=== PATIENT | female | born 1965 | race Caucasian/White ===

== ENCOUNTER → 2018-11-27 | Day surgery (SDC) | payer OTHER ==
--- NOTE | 2018-12-01 18:26 | PATH ---
Surgical Pathology Report Patient Name: DARRICK MALONE [facility]. Rec. #: [id number] /Age/Gender: 1965 (Age: 53) / F Account: [id number] Location: [facility] Taken: 11/27/2018 Received: 11/27/2018 Reported: 12/01/2018 Physicians: Oh Hoover M.D. Specimen(s) Received RIGHT BREAST SPECIMEN WITHOUT CALCIFICATIONS Clinical History Nonpalpable lesion Mammographic findings: Suspicious Final Diagnosis RIGHT BREAST SPECIMEN WITHOUT CALCIFICATIONS, STEREOTACTIC BIOPSY: BREAST TISSUE WITH LOBULAR CARCINOMA IN SITU (LCIS), CLASSICAL TYPE. THE REST OF THE BREAST TISSUE SHOW FIBROCYSTIC CHANGES WITH USUAL DUCTAL HYPERPLASIA, COLUMNAR CELL CHANGE, DILATED DUCTS, MICROCYST, APOCRINE METAPLASIA, AND STROMAL FIBROSIS. Comment: Immunohistochemical stains show the following results: tumor cells in the LCIS (block A1) are negative for E-Cadherin, supports a lobular phenotype. Intraductal epithelial proliferation (block 5, block 6) show mosaic positive staining pattern for CK5/6, and patchy staining pattern for ER, consistent with usual ductal hyperplasia. E-cadherin, CK5/6 performed at [facility] ([id number]) and interpreted at [facility]. ER performed and interpreted at [facility]. Positive and negative controls (internal if applicable) show appropriate results. Electronically Signed Liz Fritz M.D. Gross Description Received in formalin labeled "right breast without calcifications," is a 5.5 x 4.5 x 0.4 cm aggregate of abundant vigil-yellow, irregular to cylindrical portions of fibroadipose tissue. The formalin is filtered and the specimen is entirely submitted in 6 cassettes. Time to formalin fixation: 5 minutes Total formalin fixation time: Approximately 6 hours. /11/27/2018 saudi11/27/2018
== END | disposition home or self-care (01) ==
LOC: FMAMMOTONE 10:13
PROVIDERS: ATTEND Family Medicine
PROC: 0HBT3ZX Excision of Right Breast, Percutaneous Approach, Diagnostic (ICD-10-PCS; principal; 2018-11-27)
DX: D05.01 Lobular carcinoma in situ of right breast (principal); N60.31 Fibrosclerosis of right breast; N60.81 Other benign mammary dysplasias of right breast; N64.89 Other specified disorders of breast; R92.1 Mammographic calcification found on diagnostic imaging of breast
CPT/HCPCS: 19081; 87899; 88305-TC; 88342-TC; A4648

== ENCOUNTER 2019-07-03 10:49 | Day surgery (SDC) | payer OTHER ==
--- NOTE | 2019-06-25 13:25 | HP ---
Admitting History and Physical - Primary Care Physician PCP: Carmen Mast - Admission Chief Complaint: right breast LCIS History of Present Illness: Patient is a 54 yo female who was noted to have right breast calcifications on screening mammo 10/2018. Patient underwent a stereo core bx (11/2018) of this area which revealed LCIS classical type. MRI done 01/2019 was unremarkable. Patient is now presenting for right breast WE with NL. History Source: Patient Limitations to Obtaining History: No Limitations - Past Medical History Pulmonary: Yes: Asthma Heme/Onc: Yes: Anemia Psych: Yes: Bipolar (last hospitalization 7 yrs ago) Endocrine: Yes: Hypothyroidism - Past Surgical History Past Surgical History: Yes: Cholecystectomy (lap 2015) - Smoking History Smoking history: Former smoker Have you smoked in the past 12 months: No - Alcohol/Substance Use Hx Alcohol Use: No Home Medications - Allergies Allergies/Adverse Reactions: Allergies Allergy/AdvReac Type Severity Reaction Status Date / Time Sulfa (Sulfonamide Allergy Verified 02/09/15 14:27 Antibiotics) - Home Medications Home Medications: Ambulatory Orders Naproxen [Naprosyn -] 500 mg PO BID #14 tablet 02/09/15 Family Disease History - Family Disease History Family Disease History: CA: Father (prostate ca 80 currently 84), Sister ( breast ca 67 stage 4) Other Family History: paternal cousin-breast cancer at 49 Physical Examination Constitutional: Yes: Well Nourished Breast(s): Yes: Other (Breasts are symmetrical and diffusely nodular without suspicious masses or adenopathy noted bilaterally.) Problem List - Problems (1) Lobular carcinoma in situ (LCIS) of right breast Code(s): D05.01 - LOBULAR CARCINOMA IN SITU OF RIGHT BREAST Assessment/Plan Plan: Right breast WE with NL.
[2019-06-29 12:59] VITALS: BMI 46.3
[2019-07-03] MEDS ORDERED: PROPOFOL 20 ML ONE ×2 (13:40→13:42)
[2019-07-03] MEDS ORDERED: MIDAZOLAM HCL 2 MG/2 ML SINGLE DOSE VIAL ONE (13:40)
[2019-07-03] MEDS ORDERED: DEXAMETHASONE SOD PHOSPHATE 4 MG/1 ML VIAL ONE (13:42)
[2019-07-03] MEDS ORDERED: KETOROLAC TROMETHAMINE 30 MG/1 ML VIAL ONE (13:42)
[2019-07-03] MEDS ORDERED: LIDOCAINE HCL/PF 2% SDV 5ML VIAL ONE (13:42)
[2019-07-03] MEDS ORDERED: ONDANSETRON 4 MG/2 ML VIAL ONE (13:42)
[2019-07-03] MEDS ORDERED: BUPIVACAINE HCL/PF 2.5 MG/ML - 30 ML VIAL IJ ONE (13:44)
[2019-07-03] MEDS ORDERED: LIDOCAINE HCL 1% PRESERVATIVE FREE - 30ML VIAL ONE (13:44)
[2019-07-03] MEDS ORDERED: LIDOCAINE HCL 1%, 10 MG/ML (50 mL VIAL) NR ONE (14:58)
[2019-07-03] MEDS ORDERED: BUPIVACAINE HCL/PF 0.25% (2.5MG/ML) 10 ML VIAL IJ ONE (14:58)
[2019-07-03] MEDS ORDERED: ONDANSETRON 4 MG/2 ML VIAL IVPUSH PRN (15:28)
[2019-07-03] MEDS ORDERED: KETOROLAC TROMETHAMINE 30 MG/1 ML VIAL IVPUSH PRN (15:28)
[2019-07-03] MEDS ORDERED: DEXTROSE 5%-0.45% SALINE 1,000 ML IV SCH (15:30)
[2019-07-03] MEDS ORDERED: oxyCODONE HCL 5 MG TABLET PO PRN (15:59)
[2019-07-03] MEDS ORDERED: LACTATED RINGERS SOLUTION 1,000 ML IV SCH (16:00)
[2019-07-03 16:12] VITALS: TEMP 97.6
[2019-07-03 16:42] VITALS: BP 112/68
[2019-07-03 17:07] VITALS: PULSE 70
--- NOTE | 2019-07-06 11:43 | OP ---
DATE OF OPERATION: DATE OF DICTATION: 07/06/2019 PREOPERATIVE DIAGNOSIS: Right breast lobular carcinoma in situ. PROCEDURE: Right mammographically localized partial mastectomy. ANESTHESIA: General intubated. ATTENDING SURGEON: Carmen Brown MD ESTIMATED BLOOD LOSS: Minimal. COMPLICATIONS: None. DESCRIPTION OF PROCEDURE: Patient was made aware of the risks and benefits of the procedure and consented. Preoperatively, she went to radiology suite where a needle was placed next to the indexed lesion. The patient was then brought to the operating room and placed in a supine position on the operating room table. After general anesthesia was induced, the patient was intubated. The operative site was prepped and draped in the usual sterile fashion. Curvilinear incision was then made next to the needle. Using electrocautery, thick skin flaps were made. Needle was withdrawn through the puncture site and a wire through the wound. Tissues around the wire were then sharply excised and submitted with a short suture superior, long suture lateral. Specimen radiograph confirmed the presence of the indexed lesion. This was then submitted for permanent sectioning. The wound was then copiously irrigated with normal saline and hemostasis maintained by electrocautery. The wound was closed with deep 2-0 Vicryl followed by subdermal 3-0 Vicryl followed by a running subcuticular 4-0 Monocryl. Dermabond, sterile dressing, and a compression bra were then applied, and the patient, having tolerated the procedure well, was transferred to the recovery room in excellent condition. CARMEN CORREA M.D. [id number]
--- NOTE | 2019-07-09 11:27 | PATH ---
Surgical Pathology Report Patient Name: DARRICK MALONE [facility]. Rec. #: [id number] /Age/Gender: 1965 (Age: 54) / F Account: [id number] Location: [facility] Taken: 07/03/2019 Received: 07/03/2019 Reported: 07/09/2019 Physicians: Carmen Mast M.D. Specimen(s) Received RIGT BREAST WIDE EXCISION Clinical History History of LCIS Final Diagnosis RIGHT BREAST, EXCISION: BREAST TISSUE WITH ATYPICAL LOBULAR HYPERPLASIA (ALH). REMAINING BREAST TISSUE SHOW PROLIFERATIVE FIBROCYSTIC CHANGES INCLUDING USUAL DUCTAL HYPERPLASIA (UDH), SCLEROSING ADENOSIS, COLUMNAR CELL CHANGE, APOCRINE METAPLASIA, STROMAL FIBROSIS, AND ASSOCIATED MICROCALCIFICATIONS. Comment: Immunohistochemical stain (block 6) E-cadherin performed and interpreted at [facility] confirms loss of membranous expression in the areas of atypical lobular hyperplasia. Electronically Signed Liz Fritz M.D. Gross Description Received in formalin, labeled "right breast wide excision, suture marked long lateral short superior" is a 3.5 x 3.5 x 0.8 cm. vigil-yellow, irregular, portion of fibroadipose tissue, weighing 9 grams. There is a short suture marking the superior aspect and a long suture marking the lateral aspect, per the surgeon. There is no skin or nipple present. The specimen is inked as follows: superior: red; lateral: blue; inferior: orange; medial: green; anterior: yellow; deep black. The specimen is serially sectioned from anterior to posterior. Sectioning reveals a hemorrhagic area in the fibroadipose tissue. No distinct mass present. Sections are entirely submitted in 9 cassettes as follows: 1- anterior margin; 2-8: The rest of the tissue 9-posterior margin. Time to formalin fixation: 20 minutes Time tissue placed in formalin: Approximately 76 hours RODRI/07/06/2019 jaquan07/06/2019
== END 2019-07-03 17:00 | disposition home or self-care (01) ==
LOC: FASU 10:49
PROVIDERS: ATTEND Surgery Surgical Oncology
PROC: 0HBT0ZZ Excision of Right Breast, Open Approach (ICD-10-PCS; principal; 2019-07-03 14:43)
DX: D05.01 Lobular carcinoma in situ of right breast (principal); D64.9 Anemia, unspecified; E03.9 Hypothyroidism, unspecified; J45.909 Unspecified asthma, uncomplicated; Z87.891 Personal history of nicotine dependence
CPT/HCPCS: 19281; 36415; 84460; 86803; 87340; 87389; 88307-TC; 88342-TC; 94760

== ENCOUNTER 2023-03-14 22:42 | Emergency (ER) | payer OTHER ==
[2023-03-14 23:03] VITALS: BP 123/61; PULSE 68; BMI 44.8
[2023-03-14] MEDS ORDERED: methylPREDNISolone NA SUCC 125 MG/2 ML VIAL IVPUSH ONE (23:14)
[2023-03-14] MEDS ORDERED: ACETAMINOPHEN 1000 MG/100 ML BAG IVPB ONE (23:17)
[2023-03-14] MEDS: ALBUTEROL SO4 2.5/IPRATROPIUM 0.5 INH SOL 3 ML VIAL.NEB. NEB SCH ×2 (23:31→23:45)
[2023-03-14] MEDS ORDERED: ALBUTEROL SO4 2.5/IPRATROPIUM 0.5 INH SOL 3 ML VIAL.NEB. NEB ONE (23:35)
[2023-03-14] MEDS ORDERED: ACETAMINOPHEN INJECTION 100 ML IVPB ONE (23:35)
[2023-03-14] MEDS ORDERED: methylPREDNISolone NA SUCC 125 MG/2 ML VIAL ONE (23:36)
[2023-03-15 00:45] LABS: BASO % 0.4 % (0-2.0); EOS % 5.3 % (0-4.5); HEMATOCRIT 28.8 % (32.4-45.2); HEMOGLOBIN 9.9 GM/dL (10.7-15.3); LYMPH % 31.7 % (8-40); MCHC 34.5 g/dl (32.0-36.0); MEAN CELL VOLUME 87.1 fl (80-96); MEAN PLT VOLUME 8.2 fl (7.5-11.1); MONO % 7.1 % (3.8-10.2); NEUT % 55.5 % (42.8-82.8); PLATELET COUNT 211 10^3/uL (134-434); RBC 3.31 M/mm3 (3.60-5.2); RDW 13.5 % (11.6-15.6); WHITE BLOOD COUNT 7.1 K/mm3 (4.0-10.0)
[2023-03-15] MEDS: ALBUTEROL SO4 2.5/IPRATROPIUM 0.5 INH SOL 3 ML VIAL.NEB. NEB SCH ×2 (00:56)
[2023-03-15 01:04] LABS: POTASSIUM 3.8 mmol/L (3.5-5.1)
[2023-03-15 01:05] LABS: CALCIUM 8.7 mg/dL (8.5-10.1)
[2023-03-15 01:06] LABS: ALBUMIN 3.4 g/dl (3.4-5.0); BLOOD UREA NITROGEN 11.4 mg/dL (7-18)
[2023-03-15 01:09] LABS: CREATININE 0.7 mg/dL (0.55-1.3)
[2023-03-15 01:10] LABS: TOT PROT 6.6 g/dl (6.4-8.2)
[2023-03-15 01:11] LABS: BILIRUBIN,TOTAL 0.3 mg/dL (0.2-1)
[2023-03-15 01:15] LABS: N-TERMINAL BNP 131.6 pg/ml (5-125)
[2023-03-15 01:55] VITALS: RESP 18; TEMP 97.6
== END 2023-03-15 01:56 | disposition home or self-care (01) ==
LOC: JER 22:42
PROC: 3E033GC Introduction of Other Therapeutic Substance into Peripheral Vein, Percutaneous Approach (ICD-10-PCS; principal; 2023-03-14)
PROC: 3E033NZ Introduction of Analgesics, Hypnotics, Sedatives into Peripheral Vein, Percutaneous Approach (ICD-10-PCS; 2023-03-14)
PROC: 3E033GC Introduction of Other Therapeutic Substance into Peripheral Vein, Percutaneous Approach (ICD-10-PCS; 2023-03-14)
PROC: 3E0F7GC Introduction of Other Therapeutic Substance into Respiratory Tract, Via Natural or Artificial Opening (ICD-10-PCS; 2023-03-14)
DX: J44.1 Chronic obstructive pulmonary disease with (acute) exacerbation (principal); Z20.822 Contact with and (suspected) exposure to COVID-19
CPT/HCPCS: 0241U-QW; 36415; 71045-TC-FY; 80053; 83880; 84484; 85025; 93005; 93010; 99285-25